=== PATIENT | female | born 1995 | race Caucasian/White ===

== ENCOUNTER 2021-09-15 11:39 | Inpatient (IN) ==
[2021-09-15] MEDS ORDERED: Ringers Solution, Lactated 1,000 ML ONE (12:29)
[2021-09-15] MEDS ORDERED: *HR* Nalbuphine 10 MG/ML AMPUL IV PRN (12:30)
[2021-09-15] MEDS ORDERED: Metoclopramide 10 MG/2 ML VIAL IVP PRN (12:30)
[2021-09-15] MEDS ORDERED: Ondansetron 4 MG/2 ML VIAL IVP PRN (12:30)
[2021-09-15] MEDS ORDERED: Lidocaine 1% 20 ML MDV INFILT PRN (12:30)
[2021-09-15] MEDS ORDERED: Famotidine 20 MG/2 ML VIAL IVP PRN (12:30)
[2021-09-15] MEDS ORDERED: Ringers Solution, Lactated 1,000 ML IVC SCH (12:30)
[2021-09-15 13:48] LABS: Basophils % 0.4 %; Eosinophils % 0.5 %; Hematocrit 37.7 % (35.3-44.9); Hemoglobin 12.5 g/dL (11.5-15.4); Immature Granulocytes % 0.4 % (0-4); Lymphocytes # 1.4 K/mcL (0.6-4.6); Lymphocytes % 16.6 %; Mean Corpuscular HGB Conc 33.2 g/dL (31.6-35.5); Mean Corpuscular Hemoglobin 29.4 pg (28.0-33.3); Mean Corpuscular Volume 88.7 fL (83.0-100.0); Mean Platelet Volume 11.6 fL (9.4-12.4); Monocytes # 0.5 K/mcL (0.0-1.3); Monocytes % 5.7 %; Neutrophils # 6.5 K/mcL (1.6-8.9); Platelet Count 194 K/mcL (140-400); Red Blood Count 4.25 M/mcL (3.82-4.97); Red Cell Distribution Width 12.2 % (11.5-14.5); Segmented Neutrophils % 76.4 %; White Blood Count 8.5 K/mcL (4.3-11.1)
[2021-09-15 13:52] LABS: Amphetamine Screen,Urine Negative ng/mL (Cutoff=1000); Barbiturate Screen,Urine Negative ng/mL (Cutoff=200); Benzodiazepines Screen,Urine Negative ng/mL (Cutoff=200); Cannabinoid Screen,Urine Negative ng/mL (Cutoff = 50); Cocaine Screen,Urine Negative ng/mL (Cutoff= 300); Opiate Screen,Urine Negative ng/mL (Cutoff=300); Phencyclidine Screen,Urine Negative ng/mL (Cutoff=25)
[2021-09-15] MEDS ORDERED: EPHEDrine 50 MG/ML VIAL IVP PRN (14:02)
[2021-09-15] MEDS: miSOPROStoL 25 MCG TABLET PO PRN ×2 (14:05→18:05)
[2021-09-15 14:19] LABS: Influenza A PCR Negative (Negative); Influenza B PCR Negative (Negative); Resp. Syncytial Virus PCR Negative (Negative)
[2021-09-15 15:43] LABS: SARS-CoV-2 by PCR (In House) Negative (Negative)
[2021-09-15] MEDS ORDERED: miSOPROStoL 25 MCG TABLET PO SCH (16:00)
[2021-09-15] MEDS: Epidural Premix (fent/bupiv) 110 ML EP SCH (19:49)
[2021-09-15] MEDS ORDERED: Oxytocin 20 units/ LR 1000 mL 20 UNIT/1,000 ML BAG IVC SCH (21:15)
[2021-09-15] MEDS ORDERED: Famotidine 20 MG/2 ML VIAL ONE (22:09)
[2021-09-16] MEDS: Epidural Premix (fent/bupiv) 110 ML EP SCH (03:49)
[2021-09-16] MEDS ORDERED: Oxytocin 20 units/ LR 1000 mL 20 UNIT/1,000 ML BAG IVC SCH (07:26)
[2021-09-16] MEDS ORDERED: Ondansetron ODT 4 MG TAB.RAPDIS SL PRN (07:26)
[2021-09-16] MEDS ORDERED: Benzocaine/Menthol 56 GM AEROSOL SPRAY TP PRN (07:26)
[2021-09-16] MEDS ORDERED: Lanolin 7 G OINT...G. TP PRN (07:26)
[2021-09-16] MEDS ORDERED: Prenatal Vit/FA 1 EACH TABLET PO SCH (09:00)
[2021-09-16] MEDS: Acetaminophen 325 MG TABLET PO SCH ×2 (12:39→22:37)
[2021-09-16] MEDS: Ibuprofen 600 MG TABLET PO SCH ×2 (12:40→22:37)
[2021-09-16 20:50] VITALS: O2SAT 98
[2021-09-17] MEDS: Ibuprofen 600 MG TABLET PO SCH (05:42)
[2021-09-17] MEDS: Acetaminophen 325 MG TABLET PO SCH (05:43)
[2021-09-17 07:49] VITALS: BP 132/88; PULSE 91; TEMP 98
== END 2021-09-17 12:40 | disposition home or self-care (01) | DRG 807 ==
LOC: 1NENULAB 11:39 → 1NENUOBS 09-16 09:30 → UNDODISIN 09-17 11:10
PROVIDERS: ADMIT Advanced Practice Midwife; ATTEND Advanced Practice Midwife